=== PATIENT | female | born 1995 | race Caucasian/White ===

== ENCOUNTER 2017-05-23 10:05 | Emergency (ER) | payer SELFPAY ==
[2017-05-23 10:26] VITALS: BP 116/73
[2017-05-23] MEDS ORDERED: Rabies VIRUS VACCINE (Imovax)* 2.5 UNIT/ML 1 ML IM ONE (11:17)
[2017-05-23] MEDS ORDERED: Tetan/Diph/Pertus SYR(Tdap)* 0.5 ML SYR(BOOSTRIX) use SYR IM ONE (11:18)
--- NOTE | 2017-05-23 12:38 | UC ---
Alivia Louise Emily, scribed for Remberto Newman MD on 05/23/17 at 1118 . Bite Injury/Animal HPI - HPI Summary HPI Summary: This patient is a 22 year old F presenting to urgent care with a chief complaint of a mainor bite to L forearm that occurred at 0700 this morning. The patient rates the pain 1/10 in severity. Symptoms aggravated by nothing. Symptoms alleviated by nothing. Patient reports L forearm pain. Patient denies decrease in range of motion. Pt reports the cat has an unknown vaccination status and is available for observation. Pt reports that she has been immunized against rabies. - History of Current Complaint Chief Complaint: UCBiteInjury Stated Complaint: CAT BITE Time Seen by Provider: 05/23/17 11:00 Hx Obtained From: Patient Severity Currently: Mild Severity Initially: Mild Pain Intensity: 1 Pain Scale Used: 0-10 Numeric Onset/Duration: Sudden Onset, Still Present Type of Bite: Pet Has Animal Been Immunized?: Unknown Character: Puncture Aggravating Factor(s): Nothing Alleviating Factor(s): Nothing Associated Signs And Symptoms: Negative: Limited ROM Animal Available for Observation: Yes Animal Control Notified: No - Allergies/Home Medications Allergies/Adverse Reactions: Allergies Allergy/AdvReac Type Severity Reaction Status Date / Time No Known Allergies Allergy Verified 05/23/17 10:26 Home Medications: Home Medications Levonorgestrel (Iud) [Kyleena IUD] 17.5 mcg IU 05/23/17 [History] PMH/Surg Hx/FS Hx/Imm Hx Previously Healthy: Yes Endocrine History: Other Other Endocrine History: Negative diabetes Cardiovascular History: Other Other Cardiovascular History: Negative hypertension - Surgical History Surgical History: None - Family History Known Family History: Positive: Cardiac Disease, Diabetes - Social History Occupation: Employed Full-time Lives: Alone Alcohol Use: Weekly Substance Use Type: None Smoking Status (MU): Never Smoked Tobacco Review of Systems Skin: Other - Positive cat bite to L forearm Musculoskeletal: Other: - Positive L forearm pain. Negative decreased ROM All Other Systems Reviewed And Are Negative: Yes Physical Exam - Summary Physical Exam Summary: General: well-appearing, no pain distress Skin: warm, color reflects adequate perfusion, dry, puncture wound to L forearm , no erythema Head: normal Eyes: EOMI, DAISY ENT: normal Neck: supple, nontender Respiratory: CTA, breath sounds present Cardiovascular: RRR Abdomen: soft, nontender Bowel: present Musculoskeletal: normal, strength/ROM intact Neurological: normal, sensory/motor intact, A&O x3 Psychological: affect/mood appropriate Triage Information Reviewed: Yes Vital Signs: Initial Vital Signs Temp 98.8 F 05/23/17 10:23 Pulse 73 05/23/17 10:23 Resp 18 05/23/17 10:23 BP 116/73 05/23/17 10:23 Pulse Ox 98 05/23/17 10:23 Vital Signs Reviewed: Yes Bite Injury Course/Dx - Course Course Of Treatment: Medications reviewed. Allergies reviewed. CAT IS ADMITTED AT [facility]; IT'S RABIES IMMUNIZATION STATUS IS UNKNOWN. PATIENT IS ALREADY IMMUNIZED AGAINT RABIES. WILL GIVE A DOSE OF RABIES VACCINE TODAY AND F/U WITH [facility] TO DETERMINE NEED FOR ANOTHER VACCINE AT DAY 3 OR NEED FOR RIG. F/U [facility]; RETURN IF WORSE. - Differential Dx/Diagnosis Provider Diagnoses: CAT BITE LEFT FOREARM Discharge - Discharge Plan Condition: Stable Disposition: HOME Prescriptions: Amoxicillin/Clavulanate TAB* [Augmentin TAB 875*] 875 mg PO BID #20 tab Patient Education Materials: Animal Bite (ED) Referrals: Aziza Sunshine PA [Primary Care Provider] - Additional Instructions: FOLLOW UP WITH YOUR DOCTOR AND [facility], [phone]. GET RECHECKED FOR ANY WORSENING OF YOUR CONDITION OR QUESTIONS OR CONCERNS. The documentation as recorded by the Alivia garcia Emily accurately reflects the service I personally performed and the decisions made by me, Remberto Newman MD.
== END 2017-05-23 11:46 | disposition home or self-care (01) ==
LOC: UCEAST 10:05
DX: S51.852A Open bite of left forearm, initial encounter (principal); W55.01XA Bitten by cat, initial encounter; Y92.9 Unspecified place or not applicable
CPT/HCPCS: 90471; 90472; 90715; 99212; G0463